=== PATIENT | female | born 1930 | race African-American/Black ===

== ENCOUNTER 2019-05-02 14:40 | Emergency (ER) | payer MEDICARE, OTHER ==
[~2019-05-02] VITALS: Ht 172.7 cm; Wt 68.2 kg
[2019-05-02 14:51] VITALS: Ht 172.7 cm; Wt 68.2 kg
[2019-05-02] MEDS ORDERED: SOD CHLORIDE 0.9% 500 ML IV STA (15:18)
[2019-05-02] MEDS ORDERED: SITA50TA2 PO (16:03)
[2019-05-02] MEDS ORDERED: METF850T13 PO (16:03)
[2019-05-02] MEDS ORDERED: OMEP20CA16 PO (16:04)
[2019-05-02] MEDS ORDERED: CALC500T11 PO (16:04)
[2019-05-02] MEDS ORDERED: OXYB5TAB22 PO (16:04)
[2019-05-02] MEDS ORDERED: CLON-379 PO (16:05)
[2019-05-02] MEDS ORDERED: CHOL400T10 PO (16:05)
[2019-05-02] MEDS ORDERED: FER325 PO (16:05)
[2019-05-02] MEDS ORDERED: METO-448 PO (16:06)
[2019-05-02] MEDS ORDERED: AMLO-147 PO (16:06)
[2019-05-02] MEDS ORDERED: LOSA1TAB22 PO (16:06)
[2019-05-02] MEDS ORDERED: MEMA5TAB PO (16:06)
[2019-05-02] MEDS ORDERED: FOLI-49 PO (16:07)
--- NOTE | 2019-05-02 16:25 | ERD ---
ER Documentation Chief Complaint Chief Complaint generalized weakness x 1 day. no n/v. no distress and following commands HPI This is an 88-year-old female who is here for general weakness. She said she ate some lunch and she. No diarrhea. No fever. No headache. No focal neurological complaints. No chest pain. She says she has slight cough this morning for just a few hours and went away. She said now she feels completely normal and fine. No abdominal pain ROS All systems reviewed and are negative except as per history of present illness. Medications Home Meds Reported Medications Folic Acid* (Folic Acid*) 1 Mg Tablet, 1 MG PO DAILY, TAB 05/02/19 Memantine* (Namenda*) 5 Mg Tablet, 5 MG PO BID, #60 TAB 05/02/19 Amlodipine Besylate* (Amlodipine Besylate*) 10 Mg Tablet, 10 MG PO DAILY, #30 TAB 05/02/19 Losartan-Hydrochlorothiazide (Losartan-HCTZ) 50-12.5 Mg Tab, 1 TAB PO DAILY, TAB 05/02/19 Metoprolol Tartrate* (Lopressor*) 25 Mg Tab, 25 MG PO BID, #60 TAB 05/02/19 Clonidine Hcl* (Clonidine Hcl*) 0.1 Mg Tab, 0.1 MG PO BID PRN for ELEVATED BLOOD PRESSURE, TAB 05/02/19 Cholecalciferol* (Vitamin D*) 400 Unit Tablet, 400 UNIT PO DAILY, TAB 05/02/19 Ferrous Sulfate* (Ferrous Sulfate*) 325 Mg Tabec, 325 MG PO DAILY, TAB 05/02/19 Omeprazole* (Omeprazole*) 20 Mg Capsule.dr, 20 MG PO DAILY, #30 CAP 05/02/19 Calcium Carbonate (Oysco-500) 500 Mg Tablet, 500 MG PO DAILY, TAB 05/02/19 Oxybutynin Chloride* (Ditropan* XL) 5 Mg Tabsr, 5 MG PO DAILY, TAB.SA 05/02/19 Metformin Hcl* (Metformin Hcl*) 850 Mg Tablet, 850 MG PO WITH BREAKFAST DINNE, #60 TAB 05/02/19 Sitagliptin* (Januvia*) 50 Mg Tablet, 50 MG PO DAILY, #30 TAB 05/02/19 Allergies Allergies: Coded Allergies: No Known Allergy (Unverified , 05/02/19) PMhx/Soc Hx Neurological Disorder: Yes (DEMENTIA) Hx Alcohol Use: No Hx Substance Use: No Hx Tobacco Use: No Smoking Status: Never smoker FmHx Family History: No coronary disease Physical Exam Vitals Vital Signs Date Temp Pulse Resp B/P (MAP) Pulse Ox O2 O2 Flow FiO2 Time Delivery Rate 05/02/19 98.7 76 16 140/84 98 14:51 (102) Physical Exam Const: Well-developed, well-nourished Head: Atraumatic, normocephalic Eyes: Normal Conjunctiva, PERRLA, EOMI, normal sclera, no nystagmus ENT: Normal External Ears, Nose and Mouth, moist mucus membranes. Neck: Full range of motion. No meningismus, no lymphadenopathy. Resp: Clear to auscultation bilaterally, no wheezing, rhonchi, rales Cardio: Regular rate and rhythm, no murmurs, S1 S2 present Abd: Soft, non tender x 4, non distended. Normal bowel sounds, no guarding or rebound, no pulsitile abdominal masses or bruits Skin: No petechiae or rashes, no ecchymosis , no maculopapular rash Back: No midline or flank tenderness Ext: No cyanosis, or edema, FROM x 4, normal inspection, neurovascularly intact x 4 Neur: Awake and alert, STR 5/5 x 4, sensation intact x 4, no focal findings, cerebellum intact Psych: Normal Mood and Affect Result Diagram: 05/02/19 1525 05/02/19 1525 Results 24 hrs Laboratory Tests Test 05/02/19 15:25 White Blood Count 6.7 10^3/ul Red Blood Count 3.17 10^6/ul Hemoglobin 10.1 g/dl Hematocrit 31.8 % Mean Corpuscular Volume 100.3 fl Mean Corpuscular Hemoglobin 31.9 pg Mean Corpuscular Hemoglobin Concent 31.8 g/dl Red Cell Distribution Width 13.2 % Platelet Count 187 10^3/UL Mean Platelet Volume 10.9 fl Immature Granulocytes % 0.100 % Neutrophils % 73.5 % Lymphocytes % 19.1 % Monocytes % 6.5 % Eosinophils % 0.7 % Basophils % 0.1 % Nucleated Red Blood Cells % 0.0 /100WBC Immature Granulocytes # 0.010 10^3/ul Neutrophils # 4.9 10^3/ul Lymphocytes # 1.3 10^3/ul Monocytes # 0.4 10^3/ul Eosinophils # 0.1 10^3/ul Basophils # 0.0 10^3/ul Nucleated Red Blood Cells # 0.0 10^3/ul Urine Color YELLOW Urine Clarity CLEAR Urine pH 6.0 Urine Specific Industry 1.009 Urine Ketones NEGATIVE mg/dL Urine Nitrite NEGATIVE mg/dL Urine Bilirubin NEGATIVE mg/dL Urine Urobilinogen NEGATIVE mg/dL Urine Leukocyte Esterase NEGATIVE Sylvia/ul Urine Hemoglobin NEGATIVE mg/dL Urine Glucose NEGATIVE mg/dL Urine Total Protein NEGATIVE mg/dl Sodium Level 141 mmol/L Potassium Level 4.2 mmol/L Chloride Level 107 mmol/L Carbon Dioxide Level 24 mmol/L Anion Gap 10 Blood Urea Nitrogen 23 mg/dl Creatinine 1.18 mg/dl Est Glomerular Filtrat Rate mL/min mL/min Glucose Level 93 mg/dl Calcium Level 9.7 mg/dl Total Bilirubin 0.5 mg/dl Direct Bilirubin 0.00 mg/dl Indirect Bilirubin 0.5 mg/dl Aspartate Amino Transf (AST/SGOT) 27 IU/L Alanine Aminotransferase (ALT/SGPT) 7 IU/L Alkaline Phosphatase 51 IU/L Troponin I < 0.012 ng/ml Total Protein 8.0 g/dl Albumin 4.1 g/dl Globulin 3.90 g/dl Albumin/Globulin Ratio 1.05 Current Medications Medications Dose Sig/Darcy Start Time Status Last (Trade) Ordered Route PRN Stop Time Admin Dose Reason Admin Sodium 500 ml @ Q1H STAT 05/02/19 DC 05/02/19 Chloride 500 mls/hr IV 15:18 05/02/19 15:39 16:17 Procedures/[place] [id number] Radiology Main Line: [phone] DIAGNOSTIC IMAGING REPORT Patient: FRANCK KNOTT : 1930 Age: 88 Sex: F MR #: [id number] DOS: 05/02/19 [facility] Ordering MD: BERNARDO NICHOLSON DO Location: E/R Room/Bed: PROCEDURE: XR Chest. CLINICAL INDICATION: Pain TECHNIQUE: Frontal chest x-ray was obtained. COMPARISON: None. FINDINGS: The heart is not enlarged. Mediastinum is not widened. There is calcified plaque in the wall of the aorta No hilar masses seen. Lungs are clear of any inf iltrates. There is no effusion or pneumothorax. The osseous structures appear normal. IMPRESSION: No evidence for active cardiopulmonary disease. .Julio Cesar Burr MD, MD Date Time Electronically viewed and signed by .Julio Cesar Burr MD, MD on 05/02/2019 16:14 .A/ CC: BERNARDO NICHOLSON DO [phone] Patient received 500 cc normal saline. Patient has some mild prerenal azotemia likely consistent with her age. Pt feels good and wants to go home. Departure Diagnosis: Primary Impression: Prerenal azotemia Condition: Stable BERNARDO NICHOLSON DO May 02, 2019 16:25
[2019-05-02 17:46] VITALS: BP 113/52; PULSE 70; RESP 18
== END 2019-05-02 18:06 | disposition home or self-care (01) ==
LOC: E/R 14:40
DX: R79.89 Other specified abnormal findings of blood chemistry (principal); Z79.84 Long term (current) use of oral hypoglycemic drugs
CPT/HCPCS: 36415; 71045; 80053; 81003; 84484; 85025; 99284; J7040